=== PATIENT | male | born 1930 | race Two or more races ===

== ENCOUNTER 2017-01-05 23:17 | Inpatient (IN) | payer OTHER ==
[~2017-01-05] VITALS: Ht 167.6 cm; Wt 49.9 kg
[2017-01-05] MEDS ORDERED: ASPI-1094 (23:30)
[2017-01-05] MEDS ORDERED: LIDO30AD10 TD (23:48)
[2017-01-05] MEDS ORDERED: [UNRECOGNIZED DRUG - CODE] PO (23:48)
[2017-01-05] MEDS ORDERED: ONDA4TAB8 SL (23:48)
[2017-01-05] MEDS ORDERED: TAMS0.4C34 PO (23:48)
[2017-01-05] MEDS ORDERED: LATA2.5D2 EACHEYE (23:48)
[2017-01-05] MEDS ORDERED: POLY30DR OP (23:48)
[2017-01-05] MEDS ORDERED: LEVO5TAB13 PO (23:48)
[2017-01-05] MEDS ORDERED: CALC-1026 PO (23:48)
[2017-01-05] MEDS ORDERED: ABIR250T PO (23:48)
[2017-01-05] MEDS ORDERED: FURO-152 PO (23:48)
[2017-01-05] MEDS ORDERED: NITR0.4T48 SL (23:48)
[2017-01-05] MEDS ORDERED: ATOR10TA PO (23:48)
[2017-01-05] MEDS ORDERED: LORA0.5T PO (23:48)
[2017-01-05] MEDS ORDERED: TRAM50TA2 PO (23:48)
--- NOTE | 2017-01-06 00:32 | NUR ---
Pt transferred to ER from [place] on a 5150 for danger to others. Pt calm and cooperative at this time. Pt medically cleared for GPS admission. Report called and pt transferred to the floor
[2017-01-06 00:54] VITALS: BP 150/57
[2017-01-06] MEDS ORDERED: MAG HYDROX/AL HYDROX/SIMETH 30 ML LIQUID UDC PO PRN (01:00)
[2017-01-06] MEDS ORDERED: MAGNESIUM HYDROXIDE 30 ML LIQUID UDC PO PRN (01:00)
--- NOTE | 2017-01-06 04:01 | NUR ---
86 YRS OLD MALE WAS ADMITTED TO MHU AFTER MEDICALLY CLEARED FROM ER HE LIVES @ HOME WITH HIS GIRLFRIEND AND 2 CARETAKERS PT THREATENED TO ASSUALT HIS CARETAKERS,HE CHASED THEM WITH A DRY CLIPPER TENDER AND THRETENING TO CUT THEIR THROATS.911 WAS CALLED AND OMAR WEN PUT HIM ON 72 HR HOLD FOR DTO.CONFUSED,DISORIENTED,ANXIOUS, SUSPICIOUS,RESTLESS,EASILY IRRITABLE AND ANGRY.UNCOOPERATIVE WITH THE INTERVIEW-REFUSED TO SIGN ADMIT PAPERS AND BODY CHECKS.DISROBING AND KEPT SLIDIND DOWN FROM THE GAVIN-CHAIR.PACEMAKER NOTED ON LEFT UPPER CHEST-DENIES CHEST PAIN,UNSTEADY ON HIS FEET.FREQ.REALITY ORIENTATION AND SETTING LIMITS NEEDED.HX.OF HTN,PROSTATE CA,LUMBAR COMPRESSION FX,PACEMAKER,ALZHEIMER'S-DEMENTIA,CHRONIC KIDNEY DISEASE AND CHRONIC BACK PAIN.PT WANTED TO GET UP AND GET OUT OF HERE BECAUSE HE HAS APPT TO SEE HIS DOCTORON 01/06/17.STAFF EXPLAINED TO HIM THAT HE IS ON 72 HR HOLD FOR DTO BUT HE SAID HE WAS KIDNAPPED AGAINST HIS WILL.WILL CONTINUE TO MONITOR CLOSELY.
[2017-01-06 07:30] VITALS: BP 140/57
[2017-01-06] MEDS: ONDANSETRON ODT 4 MG TAB.RAPDIS SL SCH ×2 (11:11→17:16)
--- NOTE | 2017-01-06 13:21 | NUR ---
PT TAKEN TO BATHROOM, AND IN THE PROCESS SUSTAINED A SKIN TEAR TO RIGHT UPPER HAND, [id number]. PT DENIES PAIN OR DISCOMFORT. CLEANSED WITH NS, APPLIED TEGADERM.
[2017-01-06 16:20] VITALS: BP 148/75
[2017-01-06] MEDS ORDERED: HYDROXYZINE PAMOATE 25 MG CAPSULE PO PRN (18:30)
[2017-01-06] MEDS ORDERED: ZOLPIDEM 5 MG TABLET PO PRN (18:30)
[2017-01-06 20:06] VITALS: BP 129/62
[2017-01-06] MEDS: LATANOPROST OPHT DROP 2.5 ML BOTTLE EACHEYE SCH (20:27)
[2017-01-06] MEDS: ATORVASTATIN 10 MG TABLET PO SCH (20:27)
[2017-01-06] MEDS: TAMSULOSIN HCL 0.4 MG CAP.SR.24H PO SCH (20:27)
--- NOTE | 2017-01-06 21:22 | NUR ---
pt is anxious and restless, easily agitated, refused all meds. will continue to monitor.
[2017-01-07] MEDS: ONDANSETRON ODT 4 MG TAB.RAPDIS SL SCH ×4 (06:43→17:48)
[2017-01-07] MEDS: TRAMADOL HCL 50 MG TABLET PO PRN (06:43)
[2017-01-07 07:55] VITALS: BP 186/67
--- NOTE | 2017-01-07 08:00 | NUR ---
Pt noted skin tear on right hand with tegaderm UE's with bruising and noted skin tear on left leg - left open to air no drainage noted. Pt confused - reoriented pt to time and place. No nausea complaint by patient. Pt however is verbally abusive. Danette called DR newman to clarify his prior orders from yesterday re: depakote and resperidal. Pt sitting on evgeny-chair comfortable near nursing station for safety.
[2017-01-07] MEDS: ASPIRIN 81 MG TAB.CHEW PO SCH (08:22)
[2017-01-07] MEDS: FUROSEMIDE 20 MG TABLET PO SCH (08:22)
[2017-01-07] MEDS: LIDOCAINE 5% PATCH TD SCH (08:22)
[2017-01-07] MEDS: CALCIUM CARBONATE 500 MG TABLET PO SCH (08:22)
--- NOTE | 2017-01-07 11:54 | NUR ---
UR Note: Faxed clinicals to JON Gu with [employer] [ ]. Reference #[id number]
[2017-01-07] MEDS: DIVALPROEX 250 MG TABLET.DR PO SCH ×2 (12:05→17:00)
--- NOTE | 2017-01-07 14:27 | NUR ---
Initial discharge instructions: The patient resides at home [[address] [place] [address]; ] with his friend/roommate Chaneljomar Arndt / . Spoke with Chanel who stated that the patient will need a caregiver when he returns home and that she is unable to care for the patient on her own. SS will speak with patient, friend, and MD regarding most appropriate discharge plan. SS will form a safe and proper discharge.
[2017-01-07] MEDS ORDERED: Z GUARD REMEDY PASTE 57 GM TUBE TOP PRN (14:45)
[2017-01-07 15:02] VITALS: BP 165/70
--- NOTE | 2017-01-07 18:30 | NUR ---
Pt too sedated and sleepy Held depakote. b/p 140/42. resp 20. HR - 72. Pt is in no acute distress
[2017-01-07] MEDS: ATORVASTATIN 10 MG TABLET PO SCH (20:03)
[2017-01-07] MEDS: TAMSULOSIN HCL 0.4 MG CAP.SR.24H PO SCH (20:03)
[2017-01-07] MEDS: risperiDONE 1 MG TABLET PO SCH (20:03)
[2017-01-07 20:12] VITALS: BP 142/66
--- NOTE | 2017-01-07 20:12 | NUR ---
Patient received sitting in gerui chair in hallway. Pt is calm and cooperative at this time. Pleasant upon approach. Compliant with medications. Observed with skin tear to right hand, dressing applied. No aggressive or combative behavior thus far. Safety measures maintained.
[2017-01-07] MEDS: LATANOPROST OPHT DROP 2.5 ML BOTTLE EACHEYE SCH (21:37)
[2017-01-08] MEDS: ONDANSETRON ODT 4 MG TAB.RAPDIS SL SCH ×5 (06:21→18:22)
[2017-01-08 07:30] VITALS: BP 138/54
[2017-01-08] MEDS: CALCIUM CARBONATE 500 MG TABLET PO SCH (09:00)
--- NOTE | 2017-01-08 09:22 | NUR ---
0700-Report received from outgoing nurse. The patient was in his room . He appeared alert, awake, verbally responsive, and spoke in a very loud tone. He stated he wasnt' in any pain or discomfort. 0845-AM medication was given tot he patient. He took his medications without incident. His blood pressure was 100/60 so his blood pressure medication was held. There is an order for a doppler today due to his complaints of leg pain to the prior shift RN.
--- NOTE | 2017-01-08 10:21 | NUR ---
UR Note: Faxed clinicals to JON Gu with [employer] [ ]. Reference #[id number]
[2017-01-08] MEDS: ASPIRIN 81 MG TAB.CHEW PO SCH (11:10)
[2017-01-08] MEDS: DIVALPROEX 250 MG TABLET.DR PO SCH ×4 (11:12→18:22)
[2017-01-08] MEDS: FUROSEMIDE 20 MG TABLET PO SCH (11:13)
[2017-01-08] MEDS: risperiDONE 1 MG TABLET PO SCH ×2 (11:17→20:23)
[2017-01-08] MEDS: LIDOCAINE 5% PATCH TD SCH (11:18)
--- NOTE | 2017-01-08 14:24 | NUR ---
1100-The patient had a skin tear on his left forearm. It measures 4x4 cm. The area was cleaned with normal saline and a bandage was put on. 1200-Thep niyah is in his chair. He appeared very calm and no incidents were noted. His medications were given and he took them willingly.
[2017-01-08 15:14] VITALS: BP 145/70
[2017-01-08 20:24] VITALS: BP 171/74
[2017-01-08] MEDS: ATORVASTATIN 10 MG TABLET PO SCH (20:28)
[2017-01-08] MEDS: LATANOPROST OPHT DROP 2.5 ML BOTTLE EACHEYE SCH (20:28)
[2017-01-08] MEDS: TAMSULOSIN HCL 0.4 MG CAP.SR.24H PO SCH (20:28)
--- NOTE | 2017-01-08 21:00 | NUR ---
PT IS AWAKE, CLUE LESS, AND INCONGRUENT, MED SELECTIVE, CONTINUES TO DISROBE, VERY CONFUSED, SAYING "I AM IN MY HOUSE, I BUILT THIS HOUSE". CONTINUE TO PROVIDE REORIENTATION.
--- NOTE | 2017-01-09 | NUR ---
PT IS AWAKE, REFUSED 12 MIDNIGHT ROUTINE ZOFRAN SAYING, "I DON'T TAKE THIS SHIT".
[2017-01-09] MEDS: ONDANSETRON ODT 4 MG TAB.RAPDIS SL SCH ×4 (06:00→17:27)
[2017-01-09 07:30] VITALS: BP 177/67
[2017-01-09] MEDS: CALCIUM CARBONATE 500 MG TABLET PO SCH (08:53)
[2017-01-09] MEDS: DIVALPROEX 250 MG TABLET.DR PO SCH ×3 (08:54→17:27)
[2017-01-09] MEDS: ASPIRIN 81 MG TAB.CHEW PO SCH (08:54)
[2017-01-09] MEDS: FUROSEMIDE 20 MG TABLET PO SCH (08:54)
[2017-01-09] MEDS: LIDOCAINE 5% PATCH TD SCH (08:55)
[2017-01-09] MEDS: risperiDONE 1 MG TABLET PO SCH ×2 (08:59→21:00)
[2017-01-09 12:17] LABS: BASOPHILS % (AUTO) 0.3 % (0.0-2.0); EOSINOPHILS % (AUTO) 0.6 % (0.0-7.0); HEMATOCRIT 36.7 % (40-50); HEMOGLOBIN 12.1 G/DL (14.0-18.0); LYMPHOCYTES # (AUTO) 0.6 K/UL (0.8-4.8); LYMPHOCYTES % (AUTO) 8.3 % (20.5-51.5); MEAN CORPUSCULAR HEMOGLOBIN 29.4 UUG (27.0-31.0); MEAN CORPUSCULAR HGB CONC 33 g/dL (32.0-37.0); MEAN CORPUSCULAR VOLUME 89.2 FL (82.0-92.0); MONOCYTES # (AUTO) 0.8 K/UL (0.1-1.30); MONOCYTES % (AUTO) 10.2 % (0.0-11.0); NEUTROPHILS # (AUTO) 6.3 K/UL (1.8-8.9); NEUTROPHILS % (AUTO) 80.6 % (38.5-71.5); PLATELET COUNT (AUTO) 260 K/UL (150-450); RED BLOOD CELL COUNT(AUTO) 4.11 MIL/UL (4.7-6.1); WHITE BLOOD COUNT (AUTO) 7.7 K/UL (4.0-11.2)
[2017-01-09] MEDS: AMLODIPINE 5 MG TABLET PO SCH (12:24)
--- NOTE | 2017-01-09 12:35 | NUR ---
UR Note: Faxed clinicals to JON Gu with [employer] [ ]. Reference #[id number]
[2017-01-09 12:53] LABS: ALANINE AMINOTRANSFERASE 23 U/L (16-63); ALKALINE PHOSPHATASE 65 U/L (50-136); ASPARTATE AMINOTRANSFERASE 33 U/L (15-37); BILIRUBIN,TOTAL 0.7 mg/dL (0.2-1.0); CARBON DIOXIDE 33 mmol/L (21-32); CHLORIDE 102 mmol/L (98-107); CHOLESTEROL 168 mg/dL (<200); CREATININE 1.4 mg/dL (0.6-1.3); GLUCOSE 95 mg/dL (74-106); HDL CHOLESTEROL 88 mg/dL (40-60); PHOSPHOROUS 4.3 mg/dL (2.5-4.9); POTASSIUM 3.7 mmol/L (3.5-5.1); TRIGLYCERIDES 40 MG/DL (30-150); UREA NITROGEN, BLOOD 30 mg/dL (7-18)
[2017-01-09 14:18] LABS: THYROID STIMULATING HORMONE 1.936 mIU/mL (0.358-3.740)
[2017-01-09] MEDS ORDERED: hydrALAZINE HCL 25 MG TABLET PO PRN (15:00)
--- NOTE | 2017-01-09 15:28 | NUR ---
PATIENT SEEN AND EXAMINED BY SWATI SYSTEM TECHNOLOGIST WITH NEW ORDERS AND NOTED.
[2017-01-09 16:00] VITALS: BP 133/68
--- NOTE | 2017-01-09 18:00 | NUR ---
APPETITE IS FAIR AT THIS TIME.ENCOURAGED TO DRINK HIS BOOST ORDERED PATIENT IS COMPLIANT AND CARE AND WITH MEDICATIONS AT THIS TIME AND WILL CONTINUE TO OBSERVE.
[2017-01-09] MEDS: TAMSULOSIN HCL 0.4 MG CAP.SR.24H PO SCH (21:00)
[2017-01-09] MEDS: LATANOPROST OPHT DROP 2.5 ML BOTTLE EACHEYE SCH (21:00)
[2017-01-09] MEDS: ATORVASTATIN 10 MG TABLET PO SCH (21:00)
--- NOTE | 2017-01-09 22:41 | NUR ---
PATIENT RECEIVED IN BED AWAKE. PATIENT IS LABILE TOWARDS STAFF " GET OUT OF HERE." PATIENT IS EASILY AGITATED, IRRITABLE AND UNPREDICATABLE. PATIENT REFUSED VITAL SIGNS, AND MEDICATION EXPLAINED THE IMPORTANCE OF TAKING MEDICATION CONTINUES TO REFUSE. BED IN LOWEST POSITION, BED LOCKED, AND BED ALARM ON WHILE IN BED.
[2017-01-10] MEDS: ONDANSETRON ODT 4 MG TAB.RAPDIS SL SCH ×4 (06:00→17:58)
[2017-01-10 07:30] VITALS: BP 133/50
[2017-01-10 07:51] LABS: CHLORIDE 99 mmol/L (98-107); CREATININE 1.5 mg/dL (0.6-1.3); GLUCOSE 96 mg/dL (74-106); POTASSIUM 3.2 mmol/L (3.5-5.1); UREA NITROGEN, BLOOD 34 mg/dL (7-18)
[2017-01-10 08:21] LABS: CARBON DIOXIDE 31 mmol/L (21-32)
[2017-01-10] MEDS: DIVALPROEX 250 MG TABLET.DR PO SCH ×3 (09:00→17:24)
[2017-01-10] MEDS: AMLODIPINE 5 MG TABLET PO SCH (09:00)
[2017-01-10] MEDS: CALCIUM CARBONATE 500 MG TABLET PO SCH (09:00)
[2017-01-10] MEDS: FUROSEMIDE 20 MG TABLET PO SCH (09:00)
[2017-01-10] MEDS: ASPIRIN 81 MG TAB.CHEW PO SCH (09:00)
[2017-01-10] MEDS: risperiDONE 1 MG TABLET PO SCH ×2 (09:00→20:08)
[2017-01-10] MEDS: LIDOCAINE 5% PATCH TD SCH (10:12)
[2017-01-10] MEDS ORDERED: POTASSIUM CHLORIDE 20 MEQ TAB.PRT.SR PO ONE (10:15)
--- NOTE | 2017-01-10 13:56 | NUR ---
UR Note: Faxed clinicals to JON Gu with [employer] [ ]. Reference #[id number]
[2017-01-10 16:00] VITALS: BP 146/69
[2017-01-10] MEDS ORDERED: GUAIFENESIN/DEXTROMETHORPHAN 5 ML UDC PO PRN (16:00)
[2017-01-10 20:10] VITALS: BP 142/62
[2017-01-10] MEDS: ATORVASTATIN 10 MG TABLET PO SCH (20:11)
[2017-01-10] MEDS: LATANOPROST OPHT DROP 2.5 ML BOTTLE EACHEYE SCH (20:12)
[2017-01-10] MEDS: TAMSULOSIN HCL 0.4 MG CAP.SR.24H PO SCH (20:12)
--- NOTE | 2017-01-10 21:32 | NUR ---
PATIENT RECEIVED IN GAVIN CHAIR SECURED IN FRONT OF NURSING STATION. PATIENT IS LABILE, OCCASIONALLY YELLING "ALONDRA" PATIENT IS EASILY AGITATED, IRRITABLE AND UNPREDICATABLE. PATIENT COMPLAINT WITH VITAL SIGNS, AND COMPLAINT WITH MEDICATION TOOK RISPERDAL 1MG ONLY, REFUSED REST OF SCHEDULED MEDICATION. NO AGGRESSIVE OR COMBATIVE BEHAVIOR WILL CONTINUE TO MONITOR AND REDIRECT NEEDED.
[2017-01-11] MEDS: ONDANSETRON ODT 4 MG TAB.RAPDIS SL SCH ×2 (06:00)
[2017-01-11 07:30] VITALS: BP 129/63
[2017-01-11] MEDS: ASPIRIN 81 MG TAB.CHEW PO SCH (09:00)
[2017-01-11] MEDS: AMLODIPINE 5 MG TABLET PO SCH (09:00)
[2017-01-11] MEDS: risperiDONE 1 MG TABLET PO SCH ×2 (09:00→21:15)
[2017-01-11] MEDS: CALCIUM CARBONATE 500 MG TABLET PO SCH (09:00)
[2017-01-11] MEDS: DIVALPROEX 250 MG TABLET.DR PO SCH ×3 (09:00→17:29)
[2017-01-11] MEDS: FUROSEMIDE 20 MG TABLET PO SCH (09:00)
[2017-01-11] MEDS: LIDOCAINE 5% PATCH TD SCH (09:11)
--- NOTE | 2017-01-11 10:20 | NUR ---
UR Note: Faxed clinicals to JON Gu with [email or web address] [ ]. Reference #[id number]
[2017-01-11] MEDS ORDERED: ONDANSETRON ODT 4 MG TAB.RAPDIS SL PRN (11:45)
[2017-01-11] MEDS ORDERED: BISACODYL 10 MG SUPP.RECT RC PRN (13:30)
[2017-01-11] MEDS ORDERED: BISACODYL 10 MG SUPP.RECT RC ONE (13:30)
[2017-01-11] MEDS ORDERED: MAGNESIUM HYDROXIDE 30 ML LIQUID UDC PO ONE (13:45)
[2017-01-11] MEDS: DOCUSATE SODIUM 100 MG CAPSULE PO SCH ×2 (14:15→21:16)
[2017-01-11] MEDS: TAMSULOSIN HCL 0.4 MG CAP.SR.24H PO SCH ×2 (21:00→21:15)
[2017-01-11] MEDS: ATORVASTATIN 10 MG TABLET PO SCH (21:16)
[2017-01-11] MEDS: LATANOPROST OPHT DROP 2.5 ML BOTTLE EACHEYE SCH (21:16)
[2017-01-12 07:30] VITALS: BP 127/60
[2017-01-12 07:50] LABS: ALANINE AMINOTRANSFERASE 22 U/L (16-63); ALKALINE PHOSPHATASE 107 U/L (50-136); ASPARTATE AMINOTRANSFERASE 19 U/L (15-37); BILIRUBIN,TOTAL 0.6 mg/dL (0.2-1.0); CARBON DIOXIDE 32 mmol/L (21-32); CHLORIDE 101 mmol/L (98-107); CREATININE 1.3 mg/dL (0.6-1.3); GLUCOSE 123 mg/dL (74-106); MAGNESIUM 2.7 mg/dL (1.8-2.4); PHOSPHOROUS 3.3 mg/dL (2.5-4.9); POTASSIUM 3.9 mmol/L (3.5-5.1); UREA NITROGEN, BLOOD 32 mg/dL (7-18)
[2017-01-12 08:00] LABS: BASOPHILS % (AUTO) 0.1 % (0.0-2.0); EOSINOPHILS # (AUTO) 0.1 K/uL (0.0-0.7); EOSINOPHILS % (AUTO) 0.5 % (0.0-7.0); HEMATOCRIT 37.1 % (40-50); HEMOGLOBIN 12.6 G/DL (14.0-18.0); LYMPHOCYTES % (AUTO) 8.5 % (20.5-51.5); MEAN CORPUSCULAR HEMOGLOBIN 29.8 UUG (27.0-31.0); MEAN CORPUSCULAR HGB CONC 34 g/dL (32.0-37.0); MEAN CORPUSCULAR VOLUME 87.8 FL (82.0-92.0); MONOCYTES % (AUTO) 8.4 % (0.0-11.0); NEUTROPHILS # (AUTO) 9.3 K/UL (1.8-8.9); NEUTROPHILS % (AUTO) 82.5 % (38.5-71.5); PLATELET COUNT (AUTO) 269 K/UL (150-450); RED BLOOD CELL COUNT(AUTO) 4.23 MIL/UL (4.7-6.1); WHITE BLOOD COUNT (AUTO) 11.4 K/UL (4.0-11.2)
[2017-01-12] MEDS: FUROSEMIDE 20 MG TABLET PO SCH (08:53)
[2017-01-12] MEDS: DOCUSATE SODIUM 100 MG CAPSULE PO SCH ×2 (08:53→20:02)
[2017-01-12] MEDS: ASPIRIN 81 MG TAB.CHEW PO SCH (08:53)
[2017-01-12] MEDS: CALCIUM CARBONATE 500 MG TABLET PO SCH (08:53)
[2017-01-12] MEDS: DIVALPROEX 250 MG TABLET.DR PO SCH ×4 (08:53→16:36)
[2017-01-12] MEDS: AMLODIPINE 5 MG TABLET PO SCH (08:53)
[2017-01-12] MEDS: LIDOCAINE 5% PATCH TD SCH (08:54)
[2017-01-12] MEDS: risperiDONE 1 MG TABLET PO SCH ×2 (08:54→20:02)
--- NOTE | 2017-01-12 13:13 | NUR ---
GPS RN 1200: IN AND OUT CATHETERIZATION PERFORMED USING STERILE TECHNIQUE ORDERED. TOLERATED WELL. NO C/O PAIN OR DISCOMFORT. URINE SENT TO LAB FOR US C/S.
[2017-01-12 13:27] LABS: *BILIRUBIN,URIN NEGATIVE (NEGATIVE); *BLOOD, URINE NEGATIVE (NEGATIVE); *CLARITY,URINE CLEAR (CLEAR); *COLOR,URINE YELLOW (YELLOW); *KETONES,URINE NEGATIVE (NEGATIVE); *PROTEIN,URINE NEGATIVE (NEGATIVE); *UROBILINOGEN,URINE 0.2 E.U./dl (NORMAL); LEUKOCYTE ESTERASE ,URINE NEGATIVE (NEGATIVE); NITRITE, URINE NEGATIVE (NEGATIVE); PH,URINE 6.5 (5.0-8.0); UGLUCOSE NEGATIVE (NEGATIVE)
[2017-01-12 13:39] LABS: BACTERIA,URINE NONE SEEN /HPF (NONE SEEN); RBC,URINE NONE SEEN /HPF (0-3); SQUAMOUS EPITHELIAL CELL,UR FEW /HPF (NONE SEEN); WBC,URINE 0-3 /HPF (0-3)
[2017-01-12] MEDS: CEPHALEXIN MONOHYDRATE 250 MG CAPSULE PO SCH ×2 (15:22→21:36)
[2017-01-12] MEDS: TAMSULOSIN HCL 0.4 MG CAP.SR.24H PO SCH (20:03)
[2017-01-12] MEDS: ATORVASTATIN 10 MG TABLET PO SCH (20:03)
[2017-01-12 20:06] VITALS: BP 109/50
[2017-01-12] MEDS: LATANOPROST OPHT DROP 2.5 ML BOTTLE EACHEYE SCH (20:07)
[2017-01-12 20:49] VITALS: BP 122/62
[2017-01-13] MEDS: CEPHALEXIN MONOHYDRATE 250 MG CAPSULE PO SCH ×3 (06:00→21:11)
[2017-01-13 07:30] VITALS: BP 115/54
[2017-01-13] MEDS: LIDOCAINE 5% PATCH TD SCH (08:13)
[2017-01-13] MEDS: CALCIUM CARBONATE 500 MG TABLET PO SCH (08:13)
[2017-01-13] MEDS: DIVALPROEX 250 MG TABLET.DR PO SCH ×3 (08:23→17:00)
[2017-01-13] MEDS: FUROSEMIDE 20 MG TABLET PO SCH (08:23)
[2017-01-13] MEDS: risperiDONE 1 MG TABLET PO SCH ×2 (08:23→21:11)
[2017-01-13] MEDS: DOCUSATE SODIUM 100 MG CAPSULE PO SCH ×2 (08:23→21:11)
[2017-01-13] MEDS: AMLODIPINE 5 MG TABLET PO SCH (08:23)
[2017-01-13] MEDS: ASPIRIN 81 MG TAB.CHEW PO SCH (08:23)
[2017-01-13 15:32] VITALS: BP 126/66
[2017-01-13 20:00] VITALS: BP 137/62
[2017-01-13] MEDS: TAMSULOSIN HCL 0.4 MG CAP.SR.24H PO SCH (21:11)
[2017-01-13] MEDS: ATORVASTATIN 10 MG TABLET PO SCH (21:11)
[2017-01-13] MEDS: LATANOPROST OPHT DROP 2.5 ML BOTTLE EACHEYE SCH (21:11)
[2017-01-14] MEDS: CEPHALEXIN MONOHYDRATE 250 MG CAPSULE PO SCH ×3 (05:29→22:00)
[2017-01-14 07:08] LABS: BASOPHILS % (AUTO) 0.3 % (0.0-2.0); EOSINOPHILS # (AUTO) 0.1 K/uL (0.0-0.7); EOSINOPHILS % (AUTO) 1.3 % (0.0-7.0); HEMOGLOBIN 11.8 G/DL (14.0-18.0); LYMPHOCYTES # (AUTO) 0.8 K/UL (0.8-4.8); LYMPHOCYTES % (AUTO) 11.7 % (20.5-51.5); MEAN CORPUSCULAR HGB CONC 33 g/dL (32.0-37.0); MEAN CORPUSCULAR VOLUME 88.2 FL (82.0-92.0); MONOCYTES # (AUTO) 0.7 K/UL (0.1-1.30); NEUTROPHILS # (AUTO) 5.1 K/UL (1.8-8.9); NEUTROPHILS % (AUTO) 76.7 % (38.5-71.5); PLATELET COUNT (AUTO) 258 K/UL (150-450); RED BLOOD CELL COUNT(AUTO) 4.08 MIL/UL (4.7-6.1); WHITE BLOOD COUNT (AUTO) 6.7 K/UL (4.0-11.2)
[2017-01-14 07:30] VITALS: BP 149/56
[2017-01-14 07:35] LABS: ALANINE AMINOTRANSFERASE 20 U/L (16-63); ALKALINE PHOSPHATASE 79 U/L (50-136); ASPARTATE AMINOTRANSFERASE 18 U/L (15-37); BILIRUBIN,TOTAL 0.4 mg/dL (0.2-1.0); CARBON DIOXIDE 35 mmol/L (21-32); CHLORIDE 98 mmol/L (98-107); CREATININE 1.2 mg/dL (0.6-1.3); GLUCOSE 120 mg/dL (74-106); MAGNESIUM 2.3 mg/dL (1.8-2.4); PHOSPHOROUS 2.9 mg/dL (2.5-4.9); POTASSIUM 4.1 mmol/L (3.5-5.1); TOTAL PROTEIN, SERUM 6.7 g/dL (6.4-8.2); UREA NITROGEN, BLOOD 32 mg/dL (7-18)
[2017-01-14] MEDS: LIDOCAINE 5% PATCH TD SCH (08:41)
[2017-01-14] MEDS: risperiDONE 1 MG TABLET PO SCH ×2 (08:46→22:00)
[2017-01-14] MEDS: DOCUSATE SODIUM 100 MG CAPSULE PO SCH ×2 (08:47→22:00)
[2017-01-14] MEDS: CALCIUM CARBONATE 500 MG TABLET PO SCH (08:47)
[2017-01-14] MEDS: AMLODIPINE 5 MG TABLET PO SCH (08:47)
[2017-01-14] MEDS: ASPIRIN 81 MG TAB.CHEW PO SCH (08:47)
[2017-01-14] MEDS: DIVALPROEX 250 MG TABLET.DR PO SCH ×4 (08:47→18:50)
[2017-01-14] MEDS: FUROSEMIDE 20 MG TABLET PO SCH (08:47)
--- NOTE | 2017-01-14 11:50 | NUR ---
UR Note: Faxed clinicals to JON Gu with [employer] [ ]. Reference #[id number]
[2017-01-14 20:00] VITALS: BP 133/63
[2017-01-14] MEDS: ATORVASTATIN 10 MG TABLET PO SCH (21:00)
[2017-01-14] MEDS: LATANOPROST OPHT DROP 2.5 ML BOTTLE EACHEYE SCH (22:00)
[2017-01-14] MEDS: TAMSULOSIN HCL 0.4 MG CAP.SR.24H PO SCH (22:00)
--- NOTE | 2017-01-15 02:07 | NUR ---
GPS.RN PATIENT SLEEPING NO DISTRESS NOTED. CONTINUE TO MONITOR
[2017-01-15] MEDS: CEPHALEXIN MONOHYDRATE 250 MG CAPSULE PO SCH ×4 (06:34→22:00)
[2017-01-15 07:46] VITALS: BP 117/68
[2017-01-15] MEDS: AMLODIPINE 5 MG TABLET PO SCH (09:00)
[2017-01-15] MEDS: DIVALPROEX 250 MG TABLET.DR PO SCH ×3 (09:00→17:00)
[2017-01-15] MEDS: ASPIRIN 81 MG TAB.CHEW PO SCH (09:00)
[2017-01-15] MEDS: CALCIUM CARBONATE 500 MG TABLET PO SCH (09:00)
[2017-01-15] MEDS: risperiDONE 1 MG TABLET PO SCH (09:00)
[2017-01-15] MEDS: DOCUSATE SODIUM 100 MG CAPSULE PO SCH ×3 (09:00→21:02)
[2017-01-15] MEDS: FUROSEMIDE 20 MG TABLET PO SCH (09:00)
[2017-01-15] MEDS: LIDOCAINE 5% PATCH TD SCH (10:07)
--- NOTE | 2017-01-15 13:37 | NUR ---
UR Note: Faxed clinicals to JON Gu with [employer] [ ]. Reference #[id number]
[2017-01-15 15:45] VITALS: BP 110/67
--- NOTE | 2017-01-15 18:31 | NUR ---
patient up in evgeny chair remains delusional and needy , noted still congestion continue to monitor respiratory status
[2017-01-15 20:26] VITALS: BP 132/71
[2017-01-15] MEDS: ATORVASTATIN 10 MG TABLET PO SCH ×2 (21:00→21:02)
[2017-01-15] MEDS: LATANOPROST OPHT DROP 2.5 ML BOTTLE EACHEYE SCH ×2 (21:00→21:03)
[2017-01-15] MEDS: risperiDONE 1 MG/ML UDC PO SCH ×2 (21:00→21:03)
[2017-01-15] MEDS: TAMSULOSIN HCL 0.4 MG CAP.SR.24H PO SCH ×2 (21:00→21:03)
[2017-01-16] MEDS: CEPHALEXIN MONOHYDRATE 250 MG CAPSULE PO SCH ×3 (06:19→21:01)
[2017-01-16 07:30] VITALS: BP 120/56
[2017-01-16] MEDS: DOCUSATE SODIUM 100 MG CAPSULE PO SCH ×2 (09:00→20:58)
[2017-01-16] MEDS: risperiDONE 1 MG/ML UDC PO SCH ×2 (09:37→20:58)
[2017-01-16] MEDS: VALPROIC ACID 250 MG/5 ML LIQUID UDC PO SCH ×3 (10:02→18:22)
[2017-01-16] MEDS: CALCIUM CARBONATE 500 MG TABLET PO SCH (10:02)
[2017-01-16] MEDS: AMLODIPINE 5 MG TABLET PO SCH (10:02)
[2017-01-16] MEDS: LIDOCAINE 5% PATCH TD SCH (10:03)
[2017-01-16] MEDS: ASPIRIN 81 MG TAB.CHEW PO SCH (10:03)
[2017-01-16] MEDS: FUROSEMIDE 20 MG TABLET PO SCH (10:03)
--- NOTE | 2017-01-16 12:20 | NUR ---
UR Note: Faxed clinicals to JON Gu with [employer] [ ]. Reference #[id number]
[2017-01-16 15:34] VITALS: BP 136/64
[2017-01-16 20:22] VITALS: BP 118/54
[2017-01-16] MEDS: ATORVASTATIN 10 MG TABLET PO SCH (20:58)
[2017-01-16] MEDS: TAMSULOSIN HCL 0.4 MG CAP.SR.24H PO SCH (20:58)
[2017-01-16] MEDS: LATANOPROST OPHT DROP 2.5 ML BOTTLE EACHEYE SCH (21:01)
[2017-01-16] MEDS: TRAMADOL HCL 50 MG TABLET PO PRN (23:53)
--- NOTE | 2017-01-16 23:53 | NUR ---
Tramadol 50mg po student counsellor per patient request for pain. Bed bath provided, kept comfortable.
[2017-01-17] MEDS: CEPHALEXIN MONOHYDRATE 250 MG CAPSULE PO SCH ×3 (06:39→21:37)
--- NOTE | 2017-01-17 07:00 | NUR ---
Fairly rested. No acute resp distress.
[2017-01-17 07:02] LABS: BASOPHILS % (AUTO) 0.4 % (0.0-2.0); EOSINOPHILS # (AUTO) 0.3 K/uL (0.0-0.7); EOSINOPHILS % (AUTO) 4.7 % (0.0-7.0); HEMATOCRIT 32.9 % (40-50); LYMPHOCYTES # (AUTO) 1.6 K/UL (0.8-4.8); LYMPHOCYTES % (AUTO) 22.1 % (20.5-51.5); MEAN CORPUSCULAR HEMOGLOBIN 29.6 UUG (27.0-31.0); MEAN CORPUSCULAR HGB CONC 34 g/dL (32.0-37.0); MEAN CORPUSCULAR VOLUME 88.4 FL (82.0-92.0); MONOCYTES # (AUTO) 0.7 K/UL (0.1-1.30); MONOCYTES % (AUTO) 10.1 % (0.0-11.0); NEUTROPHILS # (AUTO) 4.7 K/UL (1.8-8.9); NEUTROPHILS % (AUTO) 62.7 % (38.5-71.5); PLATELET COUNT (AUTO) 270 K/UL (150-450); RED BLOOD CELL COUNT(AUTO) 3.72 MIL/UL (4.7-6.1); WHITE BLOOD COUNT (AUTO) 7.3 K/UL (4.0-11.2)
[2017-01-17 07:12] LABS: CARBON DIOXIDE 34 mmol/L (21-32); CHLORIDE 100 mmol/L (98-107); CREATININE 1.2 mg/dL (0.6-1.3); GLUCOSE 104 mg/dL (74-106); MAGNESIUM 2.1 mg/dL (1.8-2.4); PHOSPHOROUS 3.2 mg/dL (2.5-4.9); POTASSIUM 4.3 mmol/L (3.5-5.1); UREA NITROGEN, BLOOD 32 mg/dL (7-18)
[2017-01-17 07:30] VITALS: BP 117/54
--- NOTE | 2017-01-17 08:45 | NUR ---
DC Note: Patient will be discharged today back home [[address] [place] [address]; ] via private transportation at 12:00 pm. Patient will be picked up by his friend/roommate-Chanel Hair . Spoke with Chanel who is aware and agreeable with discharge plans. Per Chanel, she has hired a caregiver with [facility] [phone]. A home health order for safety eval and physical therapy was faxed to Brittanie WEBB with [facility] [ /Fx: ]. Patient will follow-up with Dr.Milena Ochoa (Senior Digital Designer) [[address], [place] [address]; ] and Dr. Phong Rushing (Psychiatrist) [[address], [place] [address]; ].
[2017-01-17] MEDS: DOCUSATE SODIUM 100 MG CAPSULE PO SCH ×2 (09:00→21:00)
[2017-01-17] MEDS: FUROSEMIDE 20 MG TABLET PO SCH (09:00)
[2017-01-17] MEDS: VALPROIC ACID 250 MG/5 ML LIQUID UDC PO SCH ×3 (09:00→17:00)
[2017-01-17] MEDS: risperiDONE 1 MG/ML UDC PO SCH ×3 (09:00→21:36)
[2017-01-17] MEDS: CALCIUM CARBONATE 500 MG TABLET PO SCH (09:00)
[2017-01-17] MEDS: AMLODIPINE 5 MG TABLET PO SCH (09:00)
[2017-01-17] MEDS: ASPIRIN 81 MG TAB.CHEW PO SCH (09:00)
[2017-01-17] MEDS: LIDOCAINE 5% PATCH TD SCH (10:07)
--- NOTE | 2017-01-17 11:00 | NUR ---
GPS.RN- PATIENT IRRITABLE AND ANGRY REFUSING AND SPITTING OUT MEDS. DR ZHOU NOTIFIED. HOLD DISCHARGE MD TO SEE PATIENT THIS EVENING
--- NOTE | 2017-01-17 14:42 | NUR ---
UR Note: Faxed clinicals to JON Gu with [employer] [ ]. Reference #[id number]
[2017-01-17 15:57] VITALS: BP 116/66
[2017-01-17 20:00] VITALS: BP 130/94
[2017-01-17] MEDS: LATANOPROST OPHT DROP 2.5 ML BOTTLE EACHEYE SCH (21:00)
[2017-01-17] MEDS: TAMSULOSIN HCL 0.4 MG CAP.SR.24H PO SCH (21:00)
[2017-01-17] MEDS: ATORVASTATIN 10 MG TABLET PO SCH (21:00)
[2017-01-18] MEDS: CEPHALEXIN MONOHYDRATE 250 MG CAPSULE PO SCH ×3 (05:39→21:40)
[2017-01-18 07:30] VITALS: BP 148/78
--- NOTE | 2017-01-18 07:43 | NUR ---
GPS/RN-Patient received resting in bed. no distress noted.
[2017-01-18] MEDS: ASPIRIN 81 MG TAB.CHEW PO SCH (09:00)
[2017-01-18] MEDS: VALPROIC ACID 250 MG/5 ML LIQUID UDC PO SCH ×3 (10:10→17:16)
[2017-01-18] MEDS: FUROSEMIDE 20 MG TABLET PO SCH (10:19)
[2017-01-18] MEDS: DOCUSATE SODIUM 100 MG CAPSULE PO SCH ×2 (10:19→20:10)
[2017-01-18] MEDS: AMLODIPINE 5 MG TABLET PO SCH (10:19)
[2017-01-18] MEDS: LIDOCAINE 5% PATCH TD SCH (10:20)
[2017-01-18] MEDS: CALCIUM CARBONATE 500 MG TABLET PO SCH (10:20)
[2017-01-18] MEDS: risperiDONE 1 MG/ML UDC PO SCH ×2 (10:20→20:10)
--- NOTE | 2017-01-18 10:55 | NUR ---
UR Note: Faxed clinicals to JON Gu with [employer] [ / ]. Patient was authorized through the weekend 01/18/17-01/20/17 with review due Saturday01/21/17. Authorization #[id number]
--- NOTE | 2017-01-18 14:56 | NUR ---
GPS/RN- patient awake at this time remains confused, attempting to provide care, patient irritable angry and argumentative, combative frequent redirection needed. poor insight and judgement.
[2017-01-18 16:00] VITALS: BP 153/59
[2017-01-18 20:00] VITALS: BP 130/61
[2017-01-18] MEDS: ATORVASTATIN 10 MG TABLET PO SCH (20:10)
[2017-01-18] MEDS: TAMSULOSIN HCL 0.4 MG CAP.SR.24H PO SCH (20:10)
[2017-01-18] MEDS: LATANOPROST OPHT DROP 2.5 ML BOTTLE EACHEYE SCH (20:11)
[2017-01-19] MEDS: CEPHALEXIN MONOHYDRATE 250 MG CAPSULE PO SCH ×2 (05:34→15:00)
--- NOTE | 2017-01-19 06:15 | NUR ---
GPS: REMAIN UNCOOPERATIVE WITH CARE. COMPLIANT WITH MEDS. SHOWERED THIS MORNING. PATIENT HAD LARGE BM THIS MORNING. SLEPT 7 HRS THROUGH THE NIGHT.
[2017-01-19] MEDS: risperiDONE 1 MG/ML UDC PO SCH ×2 (08:31→20:07)
[2017-01-19] MEDS: VALPROIC ACID 250 MG/5 ML LIQUID UDC PO SCH ×3 (08:31→18:05)
[2017-01-19] MEDS: ASPIRIN 81 MG TAB.CHEW PO SCH (10:27)
[2017-01-19] MEDS: CALCIUM CARBONATE 500 MG TABLET PO SCH (10:27)
[2017-01-19] MEDS: FUROSEMIDE 20 MG TABLET PO SCH (10:27)
[2017-01-19] MEDS: LIDOCAINE 5% PATCH TD SCH (10:27)
[2017-01-19] MEDS: AMLODIPINE 5 MG TABLET PO SCH (10:27)
[2017-01-19] MEDS: DOCUSATE SODIUM 100 MG CAPSULE PO SCH ×2 (10:27→20:07)
[2017-01-19 16:00] VITALS: BP 140/59
[2017-01-19] MEDS: TAMSULOSIN HCL 0.4 MG CAP.SR.24H PO SCH (20:07)
[2017-01-19] MEDS: LATANOPROST OPHT DROP 2.5 ML BOTTLE EACHEYE SCH (20:07)
[2017-01-19] MEDS: ATORVASTATIN 10 MG TABLET PO SCH (20:07)
[2017-01-19 20:17] VITALS: BP 127/60
--- NOTE | 2017-01-20 06:32 | NUR ---
GPS: REMAIN CONFUSED AND DISORIENTED.COMPLIANT WITH MEDS. ASSISTED WITH ADL'S. SLEPT 09:30 HRS THROUGH THE NIGHT.
[2017-01-20 07:30] VITALS: BP 132/57
[2017-01-20] MEDS: DOCUSATE SODIUM 100 MG CAPSULE PO SCH ×2 (09:00→21:50)
[2017-01-20] MEDS: AMLODIPINE 5 MG TABLET PO SCH (09:00)
[2017-01-20] MEDS: risperiDONE 1 MG/ML UDC PO SCH ×2 (09:00→21:50)
[2017-01-20] MEDS: FUROSEMIDE 20 MG TABLET PO SCH (09:00)
[2017-01-20] MEDS: LIDOCAINE 5% PATCH TD SCH (09:00)
[2017-01-20] MEDS: VALPROIC ACID 250 MG/5 ML LIQUID UDC PO SCH ×3 (09:00→18:20)
[2017-01-20] MEDS: CALCIUM CARBONATE 500 MG TABLET PO SCH (09:00)
[2017-01-20] MEDS: ASPIRIN 81 MG TAB.CHEW PO SCH (09:00)
[2017-01-20 16:00] VITALS: BP 148/66
[2017-01-20] MEDS: TAMSULOSIN HCL 0.4 MG CAP.SR.24H PO SCH (21:50)
[2017-01-20] MEDS: LATANOPROST OPHT DROP 2.5 ML BOTTLE EACHEYE SCH (21:50)
[2017-01-20] MEDS: ATORVASTATIN 10 MG TABLET PO SCH (21:57)
[2017-01-20 22:46] VITALS: BP 139/69
[2017-01-21 07:30] VITALS: BP 123/56
[2017-01-21] MEDS: FUROSEMIDE 20 MG TABLET PO SCH (09:11)
[2017-01-21] MEDS: AMLODIPINE 5 MG TABLET PO SCH (09:11)
[2017-01-21] MEDS: DOCUSATE SODIUM 100 MG CAPSULE PO SCH (09:11)
[2017-01-21] MEDS: CALCIUM CARBONATE 500 MG TABLET PO SCH (09:11)
[2017-01-21] MEDS: ASPIRIN 81 MG TAB.CHEW PO SCH (09:11)
[2017-01-21] MEDS: risperiDONE 1 MG/ML UDC PO SCH (09:12)
[2017-01-21] MEDS: LIDOCAINE 5% PATCH TD SCH (09:12)
[2017-01-21] MEDS: VALPROIC ACID 250 MG/5 ML LIQUID UDC PO SCH ×3 (09:12→17:00)
--- NOTE | 2017-01-21 13:20 | NUR ---
DC Note: Patient will be discharged today back home [[address] [place], [address]; [phone]] via private transportation at 6:30 pm. Patient will be picked up by his friend/roommate-Chanel Arndt [phone]. Spoke with Chanel who is aware and agreeable with discharge plans. Per Chanel, she has hired a caregiver with [facility] [phone]. A home health order for nurse evaluation and physical therapy was faxed to Brittanie WEBB with [facility] [ /Fx: [phone]]. Patient will follow-up with Dr.Milena Ochoa (Relay Shop Supervisor) [[address], [place] [address]; ] and Dr. Phong Rushing (Psychiatrist) [[address], [place] [address]; ]. For smoking cessation, patient was referred to [place] [employer] 800-LUNGUSA and [place] [employer] [phone]. Patient was also referred to the Nicotine Anonymous meeting on Saturday January 28, 2017 at 7:00 pm at [address] [facility], [place], [place].
--- NOTE | 2017-01-21 14:30 | NUR ---
GPS: Nursing Notes: Refusing Photos: Patient is angry and resistant with nursing care, refusing for pictures to be taken, verbal abusive toward staff, episodes of striking staff and threatening staff, poor impulse control, continue with treatment plan.
--- NOTE | 2017-01-21 15:36 | NUR ---
UR Note: Faxed discharge clinicals to JON Gu with [employer] [ / ]. Authorization #[id number]
[2017-01-21 16:16] VITALS: BP 117/50
--- NOTE | 2017-01-21 18:45 | NUR ---
GPS: Nursing Notes: Discharge Notes: Patient is awake and responding to his name, disoriented to time, compliant with his medications, but resistant with nursing care, poor anger management, denies any SI/HI, denies any AH/VH, denies any pain or discomfort, denies any SOB, Per Chanel, she has hired a caregiver with [facility] [employer] [facility] [phone]. A home health order for nurse evaluation and physical therapy was faxed to Brittanie WEBB with [facility] [ /Fx: [phone]]. Patient will follow-up with Dr.Milena Ochoa (Chief Pharmacist) [[address], [place] [address]; ] and Dr. Phong Rushing (Psychiatrist) [[address], [place] [address]; ]. For smoking cessation, patient was referred to [place] [employer] 800-LUNGUSA and [place] [phone]. Patient was also referred to the Nicotine Anonymous meeting on Saturday January 28, 2017 at 7:[address], [place], [place]. Per Chanel patient is missing his watch. Look all over the unit, but cannot find it, Margot nursing cap and hat production supervisor informed and she looked in the hospital safe, but she cannot find it there. Alfredo Valentin nurse in charge informed, Chanel will follow up tomorrow.
== END 2017-01-21 18:50 | disposition home health service (06) | DRG 885 ==
LOC: ER 23:19 → GPS 01-06 00:14
PROVIDERS: ADMIT Psychiatry & Neurology Psychiatry; ATTEND Nurse Practitioner Acute Care
DX: F39 Unspecified mood [affective] disorder (principal); F02.80 Dementia in other diseases classified elsewhere, unspecified severity, without behavioral disturbance, psychotic disturbance, mood disturbance, and anxiety; N18.9 Chronic kidney disease, unspecified; E44.1 Mild protein-calorie malnutrition; Z68.1 Body mass index [BMI] 19.9 or less, adult; E87.1 Hypo-osmolality and hyponatremia; Z81.1 Family history of alcohol abuse and dependence; Z88.6 Allergy status to analgesic agent; Z88.8 Allergy status to other drugs, medicaments and biological substances; N40.0 Benign prostatic hyperplasia without lower urinary tract symptoms; C61 Malignant neoplasm of prostate; K21.9 Gastro-esophageal reflux disease without esophagitis; Z95.0 Presence of cardiac pacemaker; G30.9 Alzheimer's disease, unspecified; E87.6 Hypokalemia; E83.41 Hypermagnesemia; G89.29 Other chronic pain; M54.9 Dorsalgia, unspecified; E88.09 Other disorders of plasma-protein metabolism, not elsewhere classified; I12.9 Hypertensive chronic kidney disease with stage 1 through stage 4 chronic kidney disease, or unspecified chronic kidney disease; L98.9 Disorder of the skin and subcutaneous tissue, unspecified; K59.00 Constipation, unspecified; J20.9 Acute bronchitis, unspecified; H40.9 Unspecified glaucoma; D64.9 Anemia, unspecified; Z87.311 Personal history of (healed) other pathological fracture; N28.9 Disorder of kidney and ureter, unspecified
CPT/HCPCS: 36415; 71010; 83735; 84100; 84443; 85025; 87086; 93005; 97110; 97116; 97161; 97530; C1758; J3490; Q0162